=== PATIENT | female | born 1930 ===

== ENCOUNTER 2021-09-18 23:57 | Emergency (ER) | payer MEDICARE | END 2021-09-19 04:14 | disposition home or self-care (01) | LOC: ERS 23:57 | DX: Z48.00 Encounter for change or removal of nonsurgical wound dressing (principal); S31.000D Unspecified open wound of lower back and pelvis without penetration into retroperitoneum, subsequent encounter; I10 Essential (primary) hypertension | CPT/HCPCS: 99282 ==